=== PATIENT | female | born 1960 | race Caucasian/White ===

== ENCOUNTER 2016-08-17 08:40 | Emergency (ER) | payer MEDICAID ==
[~2016-08-17] VITALS: Ht 157.5 cm; Wt 86.0 kg
[2016-08-17 08:44] VITALS: BP 150/85
[2016-08-17] MEDS ORDERED: KETOROLAC 30 MG/1 ML ONE (09:15)
[2016-08-17] MEDS ORDERED: KETOROLAC 30 MG/1 ML IM ONE (09:30)
[2016-08-17] MEDS ORDERED: b/p med (09:42)
[2016-08-17] MEDS ORDERED: LIDOCAINE 1%, 20ML ONE (09:56)
[2016-08-17] MEDS ORDERED: LIDOCAINE 1%, 20ML SQ ONE (10:00)
== END 2016-08-17 10:23 | disposition home or self-care (01) ==
LOC: ED 10:22
DX: M70.71 Other bursitis of hip, right hip (principal); I10 Essential (primary) hypertension
CPT/HCPCS: 73502; 96372; 99284; J1885; J3490

== ENCOUNTER → 2019-12-11 | Outpatient (CLI) | payer MEDICARE ==
[~2019-12-11] MED LIST: b/p med
== END | disposition home or self-care (01) ==
LOC: CFH 09:09
DX: M48.061 Spinal stenosis, lumbar region without neurogenic claudication (principal); M96.1 Postlaminectomy syndrome, not elsewhere classified; M85.88 Other specified disorders of bone density and structure, other site; M25.78 Osteophyte, vertebrae
CPT/HCPCS: 72131